=== PATIENT | male | born 1980 | race Caucasian/White ===

== ENCOUNTER 2018-09-15 16:01 | Emergency (ER) | payer OTHER ==
[~2018-09-15] VITALS: Ht 167.6 cm; Wt 81.6 kg
[2018-09-15] MEDS ORDERED: CLONAZEPAM0.5 MG (16:06)
== END 2018-09-15 16:53 | disposition home or self-care (01) ==
LOC: ER 16:01
DX: J02.9 Acute pharyngitis, unspecified (principal)

== ENCOUNTER 2019-04-11 12:23 | Emergency (ER) | payer OTHER ==
[~2019-04-11] VITALS: Ht 167.6 cm; Wt 81.6 kg
[~2019-04-11 12:23] MED LIST: CLONAZEPAM0.5 MG
[2019-04-11] MEDS ORDERED: SIMVASTATIN10 MG (13:30)
[2019-04-11] MEDS ORDERED: VENTOLIN HFA18 GM (13:31)
[2019-04-11] MEDS ORDERED: SINGULAIR4 M1 (13:31)
[2019-04-11] MEDS ORDERED: TESSALON PERLE100 M1 PO ×2 (18:06→19:09)
[2019-04-11] MEDS ORDERED: PROMETH-CODEIN 65 ML PO (18:06)
== END 2019-04-11 19:12 | disposition home or self-care (01) ==
LOC: ER 12:23
DX: B34.9 Viral infection, unspecified (principal)